=== PATIENT | male | born 1975 | race Asian ===

== ENCOUNTER 2024-06-04 14:42 | Emergency (ER) | payer SELFPAY ==
--- NOTE | ~2024-06-04 | CT_ITS ---
EXAMINATION: CT ABDOMEN AND PELVIS WITHOUT CONTRAST CLINICAL INFORMATION: Right flank pain COMPARISON: None available. TECHNIQUE: Multidetector volumetric imaging was performed from the superior aspect of the liver through the pubic symphysis. Sagittal and coronal reformatted images were obtained on the technologist's workstation. This CT examination was performed using dose optimization techniques as appropriate, variously including the following: *Automated exposure control *Adjustment of mA and/or kV according to patient size (this includes techniques or standardized protocols for targeted exams where dose is matched to indication/reason for exam; i.e. extremities or head) *Use of iterative reconstruction technique DLP: 547 mGy-cm FINDINGS: LUNG BASES: The visualized lung bases are unremarkable. LIVER, GALLBLADDER, AND BILIARY TREE: The liver is normal in size, shape, and attenuation. No focal hepatic lesion or biliary ductal dilatation is present. The gallbladder is unremarkable with no evidence of radiopaque gallstones, gallbladder wall thickening, or obvious pericholecystic inflammatory changes. PANCREAS: Unremarkable. SPLEEN: Unremarkable. ADRENAL GLANDS: Unremarkable. KIDNEYS AND URETERS: The kidneys are normal in size, shape, and attenuation. No hydronephrosis, hydroureter, or calculi seen. No perinephric stranding. BLADDER: Unremarkable. GASTROINTESTINAL TRACT: Moderate stool burden. The small and large bowel are otherwise unremarkable. No dilated loops of small bowel. No bowel wall thickening. The appendix is unremarkable. ABDOMINAL WALL: No significant hernia is appreciated. LYMPH NODES: Normal. VASCULAR: Mild atherosclerosis of the aorta and its branches. No abdominal aortic aneurysm. PELVIC VISCERA: Borderline prostate measures 4.8 cm in transverse. OSSEOUS STRUCTURES: Multilevel degenerative changes of the spine with multiple anterior osteophytes. CT/CT abdomen pelvis wo IV con IMPRESSION: 1. No acute abnormality within the abdomen or pelvis. 2. No nephrolithiasis or hydronephrosis. 3. Normal appendix. 4. Moderate stool burden. Fleischner guidelines were followed. Electronically signed by: Lisha Grossman MD 06/04/2024 03:37 PM EDT
[2024-06-04 15:00] VITALS: BP 129/52; PULSE 61; RESP 16; TEMP 36.7; O2SAT 98; BMI 23.9
--- NOTE | 2024-06-04 15:02 | ED.GENADULT ---
HPI - General Adult General Chief complaint: Urogenital-Male Stated complaint: kidney pain Time Seen by Provider: 06/04/24 16:37 Source: patient Mode of arrival: ambulatory Limitations: no limitations History of Present Illness HPI narrative: Patient is a 49-year-old male who presents emergency department for evaluation of subjective fever, chills, nausea without vomiting, fatigue, diffuse lower abdominal pain, bilateral flank pain right worse than left over the past 2 weeks. Reports urinary urgency but no dysuria, frequency, or hematuria. Additionally constipation over the past 3 days without a bowel movement. However he has been feeling generally more constipated over the past month. He states 1 month ago he moved to this country from [place]. He does admit that he has had some mild dietary changes he is predominantly eating at home but he has also increased his intake of store bought bread. When asked he states he is drinking about 4-6 cups of water daily which is significantly decreased from the previous 16 cups of water he was consuming in [place] (reporting he was drinking more there due to the hot weather). Denies any recent unintentional weight loss. Denies any known family history of colon cancer. Denies history of hematochezia or melena. Related Data Previous Rx's ?Medication ?Instructions ?Recorded docusate sodium 100 mg capsule 100 mg PO BID #30 caps 06/04/24 (Colace) polyethylene glycol 3350 17 17 g PO DAILY #119 grams 06/04/24 gram/dose oral powder (Miralax) Allergies Allergy/AdvReac Type Severity Reaction Status Date / Time No Known Allergies Allergy Verified 06/04/24 15:06 Review of Systems Review of Systems: Yes all other systems are reviewed and are negative [facility] Past Medical History Attestation statement: The following information was validated with the patient. Source: old records reviewed Social History Social History Advance Directives: No Advance Directives Information Provided: No Physical Exam ED Vital Signs: Vital Signs - 24 hr 06/04/24 15:00 06/04/24 18:31 Temperature 98.1 F 98.1 F Pulse Rate 61 61 Respiratory Rate 16 16 Blood Pressure 129/52 L 129/52 L Pulse Oximetry 98 98 Oxygen Delivery Method Room Air Room Air BMI result Body Mass Index 23.9 Appearance: Alert.?Oriented to person, place and time. No acute distress.?Normal affect.?? Neck: Normal inspection.? Neck supple.?? CVS: Heart sounds normal. Normal heart rate and rhythm.? Pulses normal.?? Respiratory: No respiratory distress.? Lung sounds clear to auscultation bilaterally?? Abdomen: Soft with right abdominal tenderness upon palpation, mild right CVAT. No rebound tenderness at McBurney's point. Negative psoas sign. Negative Rovsing sign. Negative Gore sign. Normoactive bowel sounds. No pulsatile mass.?? Skin: Skin warm and dry.? Normal skin color.? Extremities: No lower extremity edema.? Neuro: Moves all extremities spontaneously. Sensation intact bilaterally. Ambulates with normal steady gait. Course Course Course Narrative: This is an RME: Additional HPI, ROS, PE not included below will be deferred to primary provider. RME assessment and note performed by: Lani Lemos PA-C This is a [id number]-male, with a hx of diabetes, kidney stones with lithrotripsy in 2014, HTN, who presents to the ER with complaints of subjective fevers, chills, nausea, decreased energy, R flank pain. Plan: Labs, EKG, CT abdomen and pelvis Medications Administered Discontinued Medications Generic Name Dose Route Start Last Admin Trade Name Freq PRN Reason Stop Dose Admin Docusate Sodium 100 mg 06/04/24 17:19 06/04/24 17:31 Docusate Sodium 100 Mg Capsule PO 06/04/24 17:20 100 mg ONCE ONE Administration Polyethylene Glycol 17 gm 06/04/24 17:19 06/04/24 17:31 Polyethylene Glycol 3350 17 Gm Powd.Pack PO 06/04/24 17:20 17 gm ONCE ONE Administration Medical Decision Making Medical Decision Making MDM Narrative: Patient is a 49-year-old male presents emergency department for evaluation of abdominal pain with constipation urinary urgency as per HPI. Abdominal examination pertinent for right abdominal tenderness and a mild right CVAT. overall without signs of systemic toxicity found to be afebrile without tachycardia, no hypotension. No associated chest pain shortness of breath or URI symptoms to suggest pneumonia, no clinical evidence of DVT or personal history of VT/malignancy to suggest pulmonary embolism. No high-risk past medical history to suggest myocardial infarction and is without chest pain, less likely AAA, aortic dissection. negative Gore sign, unlikely acute cholecystitis, choledocholithiasis, no fever or jaundice to suggest acute cholangitis, may possibly be biliary colic secondary to cholelithiasis, LFTs are normal, lipase __, no evidence of acute cholecystitis or cholelithiasis on CT. Denies associated acid reflux, no tenderness upon palpation over the epigastrium or left upper quadrant to suggest gastritis, no recent hematemesis history less likely to suggest PUD. Denies excessive alcohol consumption, history of diabetes, lower suspicion acute pancreatitis. No rebound tenderness at McBurney's point, rigidity, guarding to suggest acute appendicitis. No tenderness of the left lower quadrant nor associated nausea, vomiting, diarrhea patient, hematochezia or melena to suggest diverticulitis or GI bleed. No appreciable hernia to suggest strangulation/incarceration. Lower suspicion for bowel obstruction. No distention or rigidity to suggest GI perforation. no testicular pain or swelling, low clinical suspicion for testicular torsion, would defer ultrasound imaging.. Differential Diagnosis Differential Diagnoses: The differential diagnosis associated with the presentation includes (See narrative above) Admission/Observation Consideration of admission/observation: Escalation of care including admission/observation considered (See narrative above ) Lab Data MDM Lab Attestation statement: I reviewed the patient's lab results. CBC is without leukocytosis anemia or thrombocytopenia. No electrolyte derangement. No PARKER. LFTs within normal range. High sensitive troponin within normal range. Random glucose of 89 despite patient expressed concern of elevated blood sugar levels. Urinalysis __. 06/04/24 15:36 06/04/24 15:36 Labs: Lab Results 06/04/24 06/04/24 06/04/24 Range/Units 15:36 16:14 17:30 WBC 8.6 (4.8-10.8) X10*3/uL RBC 4.73 (4.60-5.80) X10*6/uL Hgb 14.0 (14.0-18.0) g/dl Hct 40.5 L (42.0-52.0) % MCV 85.6 (80.0-98.0) fL MCH 29.6 (27.0-33.0) pg MCHC 34.6 (31.0-36.0) g/dl RDW 13.9 (11.0-16.0) % Plt Count 210 (160-400) X10*3/uL MPV 9.6 (9.4-12.4) fL Immature Gran % (Auto) 0.3 (0.0-0.4) % Neut % (Auto) 58.9 (45-73) % Lymph % (Auto) 32.8 (20-40) % [place] % (Auto) 6.4 (2-11) % Eos % (Auto) 1.3 (0-4) % Baso % (Auto) 0.3 (0-2) % Lymph # (Auto) 2.8 (1.2-4.9) X10*3/uL [place] # (Auto) 0.6 (0.1-1.2) X10*3/uL Eos # (Auto) 0.1 (0.0-0.4) X10*3/uL Baso # (Auto) 0.0 (0.0-0.2) X10*3/uL Abs Immat Gran (auto) 0.03 (0.00-0.03) X10*3/uL Absolute Neuts (auto) 5.1 (2.0-8.3) x10*3/uL Absolute Nucleated RBC 0.000 (0.0-0.012) X10*3/uL Nucleated RBC % (auto) 0.0 (0.0-0.2) /100WBC Sodium 141 (135-145) mmol/L Potassium 4.2 (3.3-5.1) mmol/L Chloride 107 (96-108) mmol/L Carbon Dioxide 25 (22-29) mmol/L Anion Gap 13 (12-20) BUN 16 (9-16) mg/dL Creatinine 1.10 (0.5-1.4) mg/dL Estim Creat Clear Calc 88.1 Estimated GFR > 60 POC Glucose 89 (60-115) mg/dL Random Glucose 97 (60-115) mg/dL Calcium 9.7 (8.4-10.2) mg/dL Magnesium 2.0 (1.6-2.6) mg/dL Total Bilirubin 0.6 (0.0-1.0) mg/dL Direct Bilirubin 0.1 (0.0-0.5) mg/dL AST 26 (5-37) U/L ALT 32 (0-40) U/L Alkaline Phosphatase 67 (39-117) U/L Troponin I High Sens 2.7 (<3.5-35.0) ng/L Total Protein 7.4 (6.5-8.0) g/dL Albumin 4.3 (3.5-5.0) g/dL Lipase 24 (8-78) U/L Urine Color Yellow Urine Appearance Clear Urine pH 6.0 (5.0-9.0) Ur Specific [place] <= 1.005 (1.005-1.025) Urine Protein Negative (Neg-Trace) mg/dL Urine Glucose (UA) Negative (Negative) mg/dL Urine Ketones Negative (Negative) mg/dL Urine Blood Negative (Negative) Urine Nitrite Negative (Negative) Ur Leukocyte Esterase Negative (Negative) Independent Interpretation I performed an independent interpretation of an: CT Scan (No nephrolithiasis or ureteral calculi) Radiology Impression Discussion of test interpretation with radiology: I have reviewed the radiologist's reading. Radiologist Impression: CT/CT abdomen pelvis wo IV con IMPRESSION: 1. No acute abnormality within the abdomen or pelvis. 2. No nephrolithiasis or hydronephrosis. 3. Normal appendix. 4. Moderate stool burden. Discharge Plan Discharge Clinical Impression: Constipation Patient Disposition: Home, Self-Care Instructions: Constipation (ED), High Fiber Diet (ED) Additional Instructions: As discussed, your workup today is concerning for notable constipation seen in the CT scan. Your blood work and urine testing was normal. It is recommended that you increase your water intake, you has had a significant decrease in your water intake over the past month which can greatly impact your ability to move your bowels normally. Additionally, consider refraining from dietary changes, such as the increase in consumption of bread that you are not typically use to. I have provided instructions regarding fiber intake that may help facilitate bowel movements. Additionally, I have sent a prescription for MiraLax and Colace to your pharmacy to use to help facilitate a bowel movement. You may discontinue there usage should you develop diarrhea. Follow-up with the primary care doctor. Return to emergency department any new or worsening symptoms or concerns. Prescriptions: New polyethylene glycol 3350 [Miralax] 17 gram/dose powder 17 g PO DAILY Qty: 119 0RF docusate sodium [Colace] 100 mg capsule 100 mg PO BID Qty: 30 0RF Referrals: Physician,None [Primary Care Provider] - Interventions: ED Discharge Assessment Last Done: 06/04/24 18:31 Discharge Date/Time: 06/04/24 18:32 Print Language: Scottish
--- NOTE | 2024-06-04 15:07 | ECG_ITS ---
Test Reason : WEAKNESS Blood Pressure : / mmHG Vent. Rate : 066 BPM Atrial Rate : 066 BPM P-R Int : 116 ms QRS Dur : 086 ms QT Int : 364 ms P-R-T Axes : 000 189 166 degrees QTc Int : 381 ms Normal sinus rhythm Right superior axis deviation - possible lead reversal Nonspecific ST and T wave abnormality Abnormal ECG No previous ECGs available Referred By: Lani Lemos Electronically Signed By:JENNIFER SNELL
[2024-06-04 15:41] LABS: MANUAL DIFF FLAG NO
[2024-06-04 15:42] LABS: Basophils Percent Auto 0.3 % (0-2); Eosinophils Absolute Auto 0.1 X10*3/uL (0.0-0.4); Eosinophils Percent Auto 1.3 % (0-4); Hematocrit 40.5 % (42.0-52.0); Imm Gran Abs Auto 0.03 X10*3/uL (0.00-0.03); Imm Gran Pct Auto 0.3 % (0.0-0.4); Lymphocytes Absolute Auto 2.8 X10*3/uL (1.2-4.9); Lymphocytes Percent Auto 32.8 % (20-40); Mean Corpuscular HGB Conc 34.6 g/dl (31.0-36.0); Mean Corpuscular Hemoglobin 29.6 pg (27.0-33.0); Mean Corpuscular Volume 85.6 fL (80.0-98.0); Mean Platelet Volume 9.6 fL (9.4-12.4); Monocytes Absolute Auto 0.6 X10*3/uL (0.1-1.2); Monocytes Percent Auto 6.4 % (2-11); Neutrophils Absolute Auto 5.1 x10*3/uL (2.0-8.3); Neutrophils Percent Auto 58.9 % (45-73); Platelet Count 210 X10*3/uL (160-400); Red Blood Count 4.73 X10*6/uL (4.60-5.80); Red Cell Distribution Width 13.9 % (11.0-16.0); White Blood Count 8.6 X10*3/uL (4.8-10.8)
[2024-06-04 15:58] LABS: Alanine Aminotransferase 32 U/L (0-40); Albumin Level 4.3 g/dL (3.5-5.0); Alkaline Phosphatase 67 U/L (39-117); Anion Gap 13 (12-20); Aspartate Amino Transferase 26 U/L (5-37); Bilirubin Direct 0.1 mg/dL (0.0-0.5); Bilirubin Total 0.6 mg/dL (0.0-1.0); Blood Urea Nitrogen 16 mg/dL (9-16); Calcium 9.7 mg/dL (8.4-10.2); Carbon Dioxide 25 mmol/L (22-29); Chloride 107 mmol/L (96-108); Creatinine Clr Calc Pharmacy 88.1; Estimated Glomerular Filt Rate > 60; Glucose Random 97 mg/dL (60-115); Potassium 4.2 mmol/L (3.3-5.1); Sodium 141 mmol/L (135-145); Total Protein 7.4 g/dL (6.5-8.0)
[2024-06-04 16:05] LABS: Troponin-I High Sensitivity 2.7 ng/L (<3.5-35.0)
[2024-06-04 16:17] LABS: Glucose, Whole Blood 89 mg/dL (60-115)
[2024-06-04 17:17] LABS: Lipase 24 U/L (8-78)
[2024-06-04] MEDS: Docusate Sodium 100 MG CAPSULE PO (17:31)
[2024-06-04] MEDS: polyethylene glycoL 3350 17 GM POWD.PACK PO (17:31)
[2024-06-04 17:49] LABS: Appearance Urine Clear; Color Urine Yellow; Glucose Urine UA Negative (Negative); Leukocyte Esterase Urine Negative (Negative); Nitrite Urine Negative (Negative); Specific Gravity - Urine <= 1.005 (1.005-1.025); Urine Blood Negative (Negative); Urine Ketones Negative (Negative); Urine Protein Negative (Neg-Trace)
[2024-06-04 18:31] VITALS: BP 129/52; PULSE 61; RESP 16; TEMP 36.7; O2SAT 98
== END 2024-06-04 18:32 | disposition home or self-care (01) ==
PROVIDERS: Nurse Practitioner Family; Physician Assistant Medical; Emergency Provider Emergency Medicine
DX: K59.00 Constipation, unspecified (principal); R10.30 Lower abdominal pain, unspecified; R50.9 Fever, unspecified; E11.9 Type 2 diabetes mellitus without complications; I10 Essential (primary) hypertension
CPT/HCPCS: 36415; 74176; 80048; 80076; 81003; 82947; 83690; 83735; 84484; 85025; 93005; 99284

== ENCOUNTER → 2024-06-04 15:07 | Outpatient (BNV) | payer SELFPAY | PROVIDERS: Emergency Provider Emergency Medicine; Visit Provider Internal Medicine | DX: R53.1 Weakness (principal) | CPT/HCPCS: 93010 ==